=== PATIENT | male | born 1980 | race Hispanic/Latino ===

== ENCOUNTER 2020-08-11 14:50 | Emergency (ER) | payer SELFPAY ==
--- NOTE | 2020-08-11 17:59 | RAD REPORT ---
EXAM DESCRIPTION: RAD - Chest Single View - 08/11/2020 5:52 pm CLINICAL HISTORY: Cough;SOB COMPARISON: Portable February 2016 TECHNIQUE: AP portable chest image was obtained 08/11/2020 5:52 pm . FINDINGS: Lung volumes are low. Patchy alveolar opacities are present in the mid and lower left lung field and in the mid right lung field. Interstitial markings are prominent. Pattern is suspicious fo r a bilateral pneumonia. Bilateral pattern is more typical for viral pneumonia including COVID-19 pne umonia. Bacterial pneumonia is still possible. Heart and vasculature are normal. No measurable pleural effusion and no pneumothorax. No acute bony abnormality seen. No acute aortic findings suspected. IMPRESSION: Bilateral pneumonia pattern favoring viral pneumonia. This would include COVID-19 pneumo sosa. Atypical presentation of a bacterial pneumonia cannot be excluded.
[2020-08-11] MEDS ORDERED: ALBUTEROL INHALER 60 PUFF/8 GM IH ONE (18:02)
[2020-08-11] MEDS ORDERED: predniSONE 20 MG TAB ONE (18:02)
[2020-08-11] MEDS ORDERED: HYDROCODONE/CHLORPHEN 5 ML/OSYR ONE (18:02)
[2020-08-11 19:46] LABS: SARS-COV-2 RT PCR POSITIVE (NEGATIVE)
--- NOTE | 2020-08-11 19:57 | ER ---
Nurse's Notes [facility] Name: Antony Almonte Age: 40 yrs Sex: Male : 1980 Arrival Date: 08/11/2020 Time: 14:51 Bed 25 Private MD: Diagnosis: Pneumonia due to SARS-associated coronavirus Presentation: 08/11 14:57 Chief complaint: Patient states: SOB, slight cough, fatigue, JACOB, dry nose and mouth, ll1 urinary urgency with very yellow urine, and his taste is off for 5 days. No appetite, no N/V/D. Feels hot, but known fever. Fingerstick 139 in triage. Coronavirus screen: Client denies travel out of the [place] in the last 14 days. congestion, cough unrelated to allergies, fatigue, headache, muscle pain, loss of taste or smell, Client presents with at least one sign or symptom that may indicate coronavirus-19. Standard/surgical mask placed on the client. Ebola Screen: Patient denies travel to an Ebola-affected area in the 21 days before illness onset. Initial Sepsis Screen: Does the patient meet any 2 criteria? No. Patient's initial sepsis screen is negative. Does the patient have a suspected source of infection? Yes: Productive cough/pneumonia. Risk Assessment: Do you want to hurt yourself or someone else? Patient reports no desire to harm self or others. Onset of symptoms was August 06, 2020. 14:57 Method Of Arrival: Ambulatory ll1 14:57 Acuity: BORIS 3 ll1 Triage Assessment: 16:55 General: Appears. zb 18:00 Headache History: Denies prior headaches. General: Appears in no apparent distress. zb Pain: Also complains of. 18:01 Pain: Pain currently is 7 out of 10 on a pain scale. zb Historical: - Allergies: 15:01 No Known Allergies; ll1 - PMHx: 15:01 Pancreatitis; HTN-in the past; ll1 - PSHx: 15:01 None; ll1 - Immunization history:: Flu vaccine is not up to date. - Social history:: Smoking status: Patient/guardian denies using tobacco, the patient reports quitting approximately 1 years ago. Screenin:54 Abuse screen: Denies threats or abuse. Denies injuries from another. Nutritional zb screening: No deficits noted. Tuberculosis screening: No symptoms or risk factors identified. Fall Risk None identified. Assessment: 17:08 General: Appears in no apparent distress. Behavior is cooperative, anxious, Reports zb chills for >3 days, fever for > 3 days, feeling ill for > 3 days, fatigue for >3 days. Pain: Complains of pain in forehead and chest, generaziled body aches Quality of pain is described as aching, pressure, sharp, Pain began . Neuro: Level of Consciousness is awake, alert, obeys commands, Oriented to person, place, time. Neuro: Moves all extremities. Full function. Cardiovascular: Heart tones S1 S2 present Capillary refill < 3 seconds Patient's skin is warm and dry. Respiratory: Reports shortness of breath at rest cough that is non-productive, persistent pain with respiration Airway is patent Respiratory effort is even, unlabored, Respiratory pattern is regular, symmetrical, Breath sounds with rales in left posterior lower lobe and right posterior lower lobe the patient has mild shortness of breath. GI: Abdomen is round. Derm: Skin is intact, is healthy with good turgor, Skin is dry, Skin is normal, Skin temperature is warm. Musculoskeletal: Range of motion: intact in all extremities. 18:00 Reassessment: Patient appears in no apparent distress at this time. Patient and/or zb family updated on plan of care and expected duration. Pain level reassessed. Patient is alert, oriented x 3, equal unlabored respirations, skin warm/dry/pink. patient relaxing at this time. no acute events awaiting for lab results. 18:38 Reassessment: patient states he is feeling better. zb 19:30 Reassessment: Patient appears in no apparent distress at this time. Patient and/or zb family updated on plan of care and expected duration. Pain level reassessed. Patient is alert, oriented x 3, equal unlabored respirations, skin warm/dry/pink. c/o headache. notified ecp verbal order for medication. 20:24 Reassessment: Patient appears in no apparent distress at this time. Patient and/or zb family updated on plan of care and expected duration. Pain level reassessed. Patient is alert, oriented x 3, equal unlabored respirations, skin warm/dry/pink. d/c charge pending completion of neb tx. Vital Signs: 14:57 BP 135 / 69; Pulse 83; Resp 17; Temp 98.1; Pulse Ox 97% on R/A; Weight 99.79 kg; Height ll1 5 ft. 11 in. (180.34 cm); Pain 8/10; 17:11 BP 136 / 86; Pulse 73; Resp 16; Pulse Ox 97% on R/A; zb 18:30 BP 123 / 74; Pulse 74; Resp 16; Pulse Ox 96% on R/A; zb 19:57 BP 113 / 70; Pulse 83; Resp 18; Pulse Ox 96% on R/A; zb 14:57 Body Mass Index 30.68 (99.79 kg, 180.34 cm) ll1 ED Course: 14:51 Patient arrived in ED. bp1 15:00 Triage completed. ll1 16:49 Arm band placed on Patient placed in an exam room, on a stretcher. ll1 16:50 Teena Hamilton, RN is Primary Nurse. zb 16:55 Patient has correct armband on for positive identification. Pulse ox on. NIBP on. Door zb closed. Noise minimized. 16:59 Jonny Mccabe NP is PHCP. pm1 16:59 Tonio Hsu MD is Attending Physician. pm1 17:52 CXR XRAY In Process Unspecified. EDMS 20:25 No provider procedures requiring assistance completed. zb 20:25 Patient did not have IV access during this emergency room visit. zb Administered Medications: 17:51 Drug: predniSONE 60 mg Route: PO; zb 18:36 Follow up: Response: No adverse reaction zb 17:51 Drug: Albuterol HFA Inhaler 2 puffs Route: Inhalation; zb 18:38 Follow up: Response: No adverse reaction; Marked relief of symptoms zb 17:52 Drug: Tussionex Pennkinetic ER (chlorpheniramine-hydrocodone) 5 ml Route: PO; zb 18:36 Follow up: Response: No adverse reaction; Marked relief of symptoms zb 19:56 Drug: Tylenol 1000 mg Route: PO; zb 20:27 Follow up: Response: No adverse reaction; Pain is decreased zb 20:17 Drug: Albuterol - atroVENT (ipratropium) (3:1) (2.5 mg - 0.5 mg) 3 ml Route: Nebulizer; zb 20:51 Follow up: Response: No adverse reaction zb Outcome: 19:57 Discharge ordered by . pm1 20:25 Discharged to home ambulatory. zb 20:25 Condition: stable 20:25 Discharge instructions given to patient, Instructed on discharge instructions, follow up and referral plans. medication usage, Demonstrated understanding of instructions, follow-up care, medications, Prescriptions given X 4. 20:56 Patient left the ED. zb Signatures: Dispatcher [employer] EDMS Jonny Mccabe NP PULP MAKER pm1 Remington Wynn, RN RN ll1 Marry Jean-Baptiste Zipporah RN RN zb Corrections: (The following items were deleted from the chart) 15:07 14:57 Chief complaint: Patient states: SOB, slight cough, fatigue, JACOB, dry nose and ll1 mouth, urinary urgency with very yellow urine, and his taste is off for 5 days. No appetite, no N/V/D. Feels hot, but known fever. ll1 16:49 15:00 Arm band placed on Patient placed in an exam room, on a stretcher, ll1 ll1
--- NOTE | 2020-08-11 19:57 | EDPHYS ---
Physician Documentation [facility] Name: Antony Almonte Age: 40 yrs Sex: Male : 1980 Arrival Date: 08/11/2020 Time: 14:51 Bed 25 Private MD: ED Physician Tonio Hsu HPI: 08/11 17:51 This 40 yrs old Male presents to ER via Ambulatory with complaints of pm1 Headache, Breathing Difficulty, Doesn't Feel Right. 17:51 The patient or guardian reports cough, with no sputum. Onset: The symptoms/episode pm1 began/occurred 5 day(s) ago. Severity of symptoms: in the emergency department the symptoms are actually worse. Modifying factors: The symptoms are alleviated by nothing, the symptoms are aggravated by nothing. Associated signs and symptoms: Pertinent positives: shortness of breath, headache, change of taste, Pertinent negatives: chest pain, diarrhea, ear ache, fever, nausea, sore throat, vomiting. The patient has not experienced similar symptoms in the past. The patient has not recently seen a physician. Historical: - Allergies: 15:01 No Known Allergies; ll1 - PMHx: 15:01 Pancreatitis; HTN-in the past; ll1 - PSHx: 15:01 None; ll1 - Immunization history:: Flu vaccine is not up to date. - Social history:: Smoking status: Patient/guardian denies using tobacco, the patient reports quitting approximately 1 years ago. ROS: 17:51 Eyes: Negative for injury, pain, redness, and discharge, ENT: Negative for injury, pm1 pain, and discharge, Neck: Negative for injury, pain, and swelling, Cardiovascular: Negative for chest pain, palpitations, and edema. 17:51 Abdomen/GI: Negative for abdominal pain, nausea, vomiting, diarrhea, and constipation, Back: Negative for injury and pain, MS/Extremity: Negative for injury and deformity, Skin: Negative for injury, rash, and discoloration. 17:51 Constitutional: Positive for body aches, fatigue, Negative for poor PO intake. 17:51 Respiratory: Positive for cough, shortness of breath. 17:51 Neuro: Positive for headache, Negative for numbness, tingling. Exam: 17:51 Constitutional: This is a well developed, well nourished patient who is awake, alert, pm1 and in no acute distress. Head/Face: Normocephalic, atraumatic. 17:51 ENT: Nares patent. No nasal discharge, no septal abnormalities noted. Tympanic membranes are normal and external auditory canals are clear. Oropharynx with no redness, swelling, or masses, exudates, or evidence of obstruction, uvula midline. Mucous membranes moist. Neck: Trachea midline, no thyromegaly or masses palpated, and no cervical lymphadenopathy. Supple, full range of motion without nuchal rigidity, or vertebral point tenderness. No Meningismus. Chest/axilla: Normal chest wall appearance and motion. Nontender with no deformity. No lesions are appreciated. 17:51 Back: No spinal tenderness. No costovertebral tenderness. Full range of motion. 17:51 Skin: Warm, dry with normal turgor. Normal color with no rashes, no lesions, and no evidence of cellulitis. MS/ Extremity: Pulses equal, no cyanosis. Neurovascular intact. Full, normal range of motion. 17:51 Eyes: Exam is negative for acute changes, Extraocular movements: no acute changes, Conjunctiva: no acute changes, Sclera: no acute changes, icterus, is not appreciated. 17:51 Cardiovascular: Rate: normal, Rhythm: regular, Pulses: no pulse deficits are appreciated, Edema: is not appreciated. 17:51 Respiratory: the patient does not display signs of respiratory distress, Breath sounds: rhonchi, that are mild. 17:51 Abdomen/GI: Inspection: abdomen appears normal, Palpation: abdomen is soft and non-tender, in all quadrants. 17:51 Neuro: Exam negative for acute changes, Orientation: is normal, Mentation: is normal, Motor: is normal, moves all fours, Gait: is steady, at a normal pace, without difficulty. Vital Signs: 14:57 BP 135 / 69; Pulse 83; Resp 17; Temp 98.1; Pulse Ox 97% on R/A; Weight 99.79 kg; Height ll1 5 ft. 11 in. (180.34 cm); Pain 8/10; 17:11 BP 136 / 86; Pulse 73; Resp 16; Pulse Ox 97% on R/A; zb 18:30 BP 123 / 74; Pulse 74; Resp 16; Pulse Ox 96% on R/A; zb 19:57 BP 113 / 70; Pulse 83; Resp 18; Pulse Ox 96% on R/A; zb 14:57 Body Mass Index 30.68 (99.79 kg, 180.34 cm) ll1 MDM: 17:01 Patient medically screened. pm1 17:51 Data interpreted: Pulse oximetry: on room air is 97 %. Interpretation: normal. pm1 19:55 ED course: Patient wants antibiotic treatment. pm1 19:59 ED course: DIRECTIONAL SURVEY DRAFTER aware reviewed. patient given renata garcia. pm1 20:17 Counseling: I had a detailed discussion with the patient and/or guardian regarding: the pm1 historical points, exam findings, and any diagnostic results supporting the discharge/admit diagnosis, lab results, radiology results, the need for outpatient follow up, to return to the emergency department if symptoms worsen or persist or if there are any questions or concerns that arise at home. 21:12 Data reviewed: vital signs. pm1 08/11 15:17 Order name: Glucose, Ancillary Testing; Complete Time: 17:01 EDSC 08/11 17:16 Order name: Strep; Complete Time: 19:01 pm1 08/11 18:56 Order name: Throat Culture EDMS 08/11 19:47 Order name: COVID-19/FLU A+B; Complete Time: 19:49 EDSC 08/11 17:16 Order name: CXR XRAY; Complete Time: 18:04 pm1 08/11 17:16 Order name: Droplet/Contact Precautions; Complete Time: 17:39 pm1 08/11 17:16 Order name: Labs collected and sent; Complete Time: 17:39 pm1 08/11 17:16 Order name: O2 Per Protocol; Complete Time: 17:39 pm1 Administered Medications: 17:51 Drug: predniSONE 60 mg Route: PO; zb 18:36 Follow up: Response: No adverse reaction zb 17:51 Drug: Albuterol HFA Inhaler 2 puffs Route: Inhalation; zb 18:38 Follow up: Response: No adverse reaction; Marked relief of symptoms zb 17:52 Drug: Tussionex Pennkinetic ER (chlorpheniramine-hydrocodone) 5 ml Route: PO; zb 18:36 Follow up: Response: No adverse reaction; Marked relief of symptoms zb 19:56 Drug: Tylenol 1000 mg Route: PO; zb 20:27 Follow up: Response: No adverse reaction; Pain is decreased zb 20:17 Drug: Albuterol - atroVENT (ipratropium) (3:1) (2.5 mg - 0.5 mg) 3 ml Route: Nebulizer; zb 20:51 Follow up: Response: No adverse reaction zb Disposition: 08/12 19:08 Co-signature as Attending Physician, Tonio Hsu MD. rn Disposition: 08/11/20 19:57 Discharged to Home. Impression: Pneumonia due to SARS-associated coronavirus. - Condition is Stable. - Discharge Instructions: COVID-19. - Prescriptions for Prednisone 20 mg Oral Tablet - take 3 tablet by ORAL route once daily for 5 days; 15 tablet. Albuterol Sulfate 90 mcg/actuation - inhale 1-2 puff by INHALATION route every 4-6 hours; 1 Inhaler. Zithromax Z- Geovanny 250 mg Oral Tablet - take 1 tablet by ORAL route as directed for 5 days Day 1 - take two (2) tablets one time. Day 2, 3, 4 , 5 take one (1) tablet once daily.; 6 tablet. Tessalon Perles 100 mg Oral Capsule - take 1 capsule by ORAL route every 8 hours As needed; 15 capsule. - Medication Reconciliation Form, Thank You Letter, Antibiotic Education, Prescription Opioid Use, Work release form form. - Follow up: Emergency Department; When: As needed; Reason: Worsening of condition. Follow up: Private Physician; When: 2 - 3 days; Reason: Recheck today's complaints, Continuance of care, Re-evaluation by your physician. - Problem is new. - Symptoms have improved. Signatures: Dispatcher [employer] EDSC Tonio sHu MD MD rn Marinas, Patrick, TRADE RECRUITER TRADE RECRUITER pm1 Remington Wynn RN RN ll1 Teena Hamilton RN RN zb Corrections: (The following items were deleted from the chart) 08/11 18:28 17:17 CORONAVIRUS+MR.LAB.BRZ ordered. EDMS EDMS 18:57 17:17 Influenza Screen (A \T\ B)+BA.LAB.BRZ ordered. EDMS EDMS 20:56 19:57 08/11/2020 19:57 Discharged to Home. Impression: Pneumonia due to SARS-associated zb coronavirus. Condition is Stable. Forms are Medication Reconciliation Form, Thank You Letter, Antibiotic Education, Prescription Opioid Use. Follow up: Emergency Department; When: As needed; Reason: Worsening of condition. Follow up: Private Physician; When: 2 - 3 days; Reason: Recheck today's complaints, Continuance of care, Re-evaluation by your physician. Problem is new. Symptoms have improved. pm1
[2020-08-11] MEDS ORDERED: ACETAMINOPHEN 500 MG TAB ONE (20:15)
[2020-08-11] MEDS ORDERED: ALBUTEROL 2.5 MG/3 ML NEB SOL ONE (20:31)
[2020-08-11] MEDS ORDERED: IPRATROPIUM BROM 0.5MG/2.5ML ONE (20:31)
[2020-08-11 21:00] VITALS: TEMP 98.1
[2020-08-11 21:03] VITALS: O2SAT 96
[2020-08-11 21:05] VITALS: BP 113/70
== END 2020-08-11 20:56 | disposition home or self-care (01) ==
LOC: ER 14:50
DX: U07.1 COVID-19 (principal); J12.82 Pneumonia due to coronavirus disease 2019
CPT/HCPCS: 0240U; 71045; 82947; 87070; 87081; 99284; J7512